=== PATIENT | female | born 1970 | race Caucasian/White ===

== ENCOUNTER 2017-05-03 02:57 | Emergency (ER) | payer BC ==
[~2017-05-03] VITALS: Ht 165.1 cm; Wt 63.5 kg
[2017-05-03 03:06] VITALS: BP_SYST 141
[2017-05-03] MEDS ORDERED: KETOROLAC TROMETHAMINE 60 MG/2 ML VIAL IM ONE (04:00)
[2017-05-03 04:26] VITALS: BP_SYST 130
== END 2017-05-03 04:26 | disposition home or self-care (01) ==
LOC: SED 02:57
DX: R07.89 Other chest pain (principal)
CPT/HCPCS: 93005; 96372; 99283; J1885; J7030